=== PATIENT | female | born 1970 | race Asian ===

== ENCOUNTER 2017-11-05 11:13 | Outpatient (CLI) | payer MEDICAID ==
--- NOTE | 2017-11-05 12:01 | XRay Report ---
CERVICAL SPINE, 5 views: History: Cervicalgia. Views of the cervical spine demonstrate normal height and alignment of the vertebral bodies. [id number] degenerative disc disease is noted at C6-7. The facet joints are unremarkable. The oblique views show patent foramina and normal apophyseal joint alignment. The prevertebral soft tissues are not thickened. IMPRESSION: Mild to moderate degenerative disc disease at C6-7.
--- NOTE | 2017-11-05 12:34 | XRay Report ---
BILATERAL KNEES, AP VIEW STANDING History: Pain in right and left knee. Findings: No comparison. Normal bone mineralization. There is suggestion of a mild varus deformity in both knees. Otherwise the bony structures and joint spaces are within normal limits. No evidence for fracture or bone lesion. Normal soft tissues. Impression: Mild varus deformity.
== END 2017-11-05 11:14 | disposition home or self-care (01) ==
LOC: XRAY 11:13
PROVIDERS: ATTEND Orthopaedic Surgery
DX: M50.323 Other cervical disc degeneration at C6-C7 level (principal); M21.162 Varus deformity, not elsewhere classified, left knee; M21.161 Varus deformity, not elsewhere classified, right knee
CPT/HCPCS: 72050; 73565